=== PATIENT | male | born 1940 | race Caucasian/White ===

== ENCOUNTER 2019-05-06 13:38 | Emergency (ER) | payer MEDICARE ==
[2019-05-06 14:00] VITALS: BP 149/66
--- NOTE | 2019-05-06 14:12 | UC ---
Back Pain HPI - HPI Summary HPI Summary: 78 y/o male presents to the urgent care c/o Pt c/o pain of lower back pain. Pain started yesterday prior to patient shoveling. He continued to shovel despite the pain. Pt states it hurts when he breathes, otherwise not really painful. Steroid shot to back on Tuesday. Hx of chronic lower back pain. Pain he is having today is different than pain he has had in the past. - History of Current Complaint Chief Complaint: UCBackPain Stated Complaint: BACK, RIB PAIN Time Seen by Provider: 05/06/19 14:11 Hx Obtained From: Patient Onset/Duration: Gradual Onset, Lasting Days - 2 days, Still Present, Worse Since - this morning w/ deep breathing Timing: Constant, Lasting Seconds - w/ deep breathing Severity Initially: Mild Severity Currently: Moderate Pain Intensity: 3 Pain Scale Used: 0-10 Numeric Back Pain: Is Discrete @ - posterior left side chest pain and anteior RT side chest pain w/ deep breathing Character: Dull Aggravating Factor(s): Other - deep breathing Alleviating Factor(s): Rest, OTC Meds Associated Signs And Symptoms: Positive: Negative. Negative: Swelling, Redness , Bruising, Weakness, Numbness, Tingling, Abdominal Pain, Flank Pain, Bladder Incontinence - Risk Factors AAA Risk Factors: Negative TAD Risk Factors: Negative Cauda Equina Risk Factors: Negative Epidural Abscess Risk Factors: Negative - Allergies/Home Medications Allergies/Adverse Reactions: Allergies Allergy/AdvReac Type Severity Reaction Status Date / Time morphine Allergy Nausea And Verified 05/06/19 14:01 Vomiting Penicillins Allergy Swelling Verified 05/06/19 14:01 propoxyphene Allergy Nausea And Verified 05/06/19 14:01 Vomiting Sulfa (Sulfonamide Allergy Nausea And Verified 05/06/19 14:01 Antibiotics) Vomiting Home Medications: Home Medications Gabapentin CAP(*) [Neurontin 300 CAP(*)] 300 mg PO TID 05/06/19 [History Confirmed 05/06/19] PMH/Surg Hx/FS Hx/Imm Hx Previously Healthy: Yes Endocrine History: Diabetes Cardiovascular History: Cardiac Disease, Hypertension, Myocardial Infarction - 2X - Surgical History Surgical History: Yes Surgery Procedure, Year, and Place: shoulder, knee, elbows,foot , penile cancer, prostate - Social History Alcohol Use: None Substance Use Type: None Smoking Status (MU): Former Smoker Length of Time of Smoking/Using Tobacco: quit in 1982 Physical Exam - Summary Physical Exam Summary: Vital signs: reviewed General: awake and alert, in no obvious distress. Skin: [employer], warm and dry, no diaphoresis, cyanosis or pallor. HEENT: -Head: normocephalic -Eyes: PERRLA, sclera and conjunctiva clear. -Ears:canals and TMs normal. -Nose: patent -Mouth/Throat: MMM, posterior pharynx clear. Neck: supple. FROM, No JVD, trachea in midline, no bruits. Chest: no orthopnea or dyspnea noted; no retractions or accessory muscle use, NT , no crepitus, CTA bilaterally, no wheezes, rhonchi, rales. Heart: RRR, no murmur, rub, or gallop. Abd: soft, NT, BSA, no epigastric tenderness, mass, pulsation; femoral pulses. Back: NT, no CVAT Extrems: no swelling, edema, tenderness. Neuro: A&O x 4, GCS 15, CNII XII intact, no LOC and no focal neuro deficits. Triage Information Reviewed: Yes Vital Signs: Initial Vital Signs Temp 98 F 05/06/19 13:52 Pulse 58 05/06/19 13:52 Resp 20 05/06/19 13:52 BP 149/66 05/06/19 13:52 Pulse Ox 97 05/06/19 13:52 Back Pain Course/Dx - Course Course Of Treatment: EKG ordered: [place] Bradycardia, HR:54bpm, ST depression on V4-V^ and LVH as per DR Marie.. - Differential Dx/Diagnosis Differential Diagnosis/HQI/PQRI: Compressive Cord Syndrome, Epidural Abscess, Herniated Disc, Strain, Sprain, Other - AK, CHF, Provider Diagnosis: Chest pain, Rib pain Discharge ED - Sign-Out/Discharge Documenting (check all that apply): Patient Departure - Pt strongly recommended to go to the [place] [facility] by ambulance to r/o AK and further management on his syptoms. However he decline to go by ambulance All imaging exams completed and their final reports reviewed: No Studies - Discharge Plan Condition: Stable Disposition: AGAINST MEDICAL ADVICE Patient Education Materials: Chest Pain (ED) Referrals: Minesh Wu MD [Primary Care Provider] - Additional Instructions: I think you need a higher level or care for your presenting symptoms. I highly recommend you to go to the ER for further evaluation and treatment. The risks of not going can be , sepsis, heart attack, etc. I spoke to the ER attending Josy . They are expecting you. - Billing Disposition and Condition Condition: STABLE Disposition: Against Medical Advice
== END 2019-05-06 14:42 | disposition left against medical advice (07) ==
LOC: UCCORT 13:38
DX: R07.9 Chest pain, unspecified (principal); R07.81 Pleurodynia; E11.9 Type 2 diabetes mellitus without complications; I25.2 Old myocardial infarction; I10 Essential (primary) hypertension; Z87.891 Personal history of nicotine dependence; Z88.2 Allergy status to sulfonamides; Z88.5 Allergy status to narcotic agent; Z88.0 Allergy status to penicillin
CPT/HCPCS: 93005; 99202; G0463